=== PATIENT | female | born 2000 ===

== ENCOUNTER 2020-02-10 12:07 | Emergency (ER) | payer OTHER ==
[2020-02-10] MEDS ORDERED: Ibuprofen 400 MG Tab PO ONE (12:43)
--- NOTE | 2020-02-10 14:05 | CR ---
Right knee: AP, lateral and sunrise patellar views of the right knee were obtained. Comparison: No previous right knee study is available. Patellofemoral joint appears preserved. No joint effusion is seen. Medial and lateral joint compartments are maintained in height. No acute fracture or other bony abnormality is appreciated. Impression: 1. No abnormality is appreciated and 3 view right knee exam. Diagnostic code #1 This report was dictated in MDT
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
== END 2020-02-10 15:14 | disposition home or self-care (01) ==
LOC: MW.ED 12:07 → MERGE 12:07 → MW.ED 15:14
DX: M25.561 Pain in right knee (principal)
CPT/HCPCS: 73562; 99283; A9270; 99282

== ENCOUNTER 2021-12-31 21:40 | Emergency (ER) | payer OTHER ==
[2021-12-31] MEDS ORDERED: Albuterol 8 GM Inhaler INH STA (22:23)
[2021-12-31] MEDS ORDERED: predniSONE 20 MG Tab PO ONE (22:38)
== END 2021-12-31 23:28 | disposition home or self-care (01) ==
LOC: MW.ED 21:40
DX: J40 Bronchitis, not specified as acute or chronic (principal); Z20.822 Contact with and (suspected) exposure to COVID-19
CPT/HCPCS: 87635; 99284; A9270; U0002

== ENCOUNTER 2025-04-11 18:35 | Observation (INO) | payer OTHER ==
[2025-04-11] MEDS: Ondansetron 4 MG/2 ML SDV IVPUSH ONE (19:15)
[2025-04-11 19:21] LABS: BASOPHILS ABSOLUTE AUTO 0.05 K/uL (0.00-0.20); BASOPHILS PERCENT AUTO 0.3 % (0.0-1.0); EOSINOPHILS ABSOLUTE AUTO 0.04 K/uL (0.00-0.45); EOSINOPHILS PERCENT AUTO 0.3 % (0.0-6.0); IMMATURE GRAN ABSOLUTE AUTO 0.04 K/uL (0.00-0.05); IMMATURE GRAN PERCENT AUTO 0.3 % (0.0-0.4); LYMPHOCYTES ABSOLUTE AUTO 2.97 K/uL (1.00-4.80); LYMPHOCYTES PERCENT AUTO 18.6 % (24.0-44.0); MEAN PLATELET VOLUME 9.7 fL (9.4-12.3); MONOCYTES ABSOLUTE AUTO 0.79 K/uL (0.00-0.80); MONOCYTES PERCENT AUTO 5.0 % (0.0-8.0); NEUTROPHILS ABSOLUTE AUTO 12.06 K/uL (1.80-7.70); NEUTROPHILS PERCENT AUTO 75.5 % (41.0-71.0); NRBC ABSOLUTE 0.00 K/uL (0.00-0.02); NRBC PERCENT 0.0 /100WBC (0.0-0.2); PLATELET COUNT,PLT 316 K/uL (150-400); RED BLOOD CELL COUNT 5.42 M/uL (4.10-5.30); WHITE BLOOD CELL COUNT,WBC 15.95 K/uL (3.9-11.3)
[2025-04-11 19:42] LABS: INR 0.98 (0.86-1.11); PTT,PARTIAL THROMBOPLSTIN TIME 23.4 SEC (23.9-30.7)
[2025-04-11 19:53] LABS: A/G RATIO 1.0 (0.9-1.6); ALANINE AMINOTRANSFERASE,ALT 35 IU/L (14-63); ASPARTATE AMNIOTRANSFERASE,AST 27 IU/L (15-37); BILIRUBIN TOTAL 0.5 mg/dL (0.2-1.0); BLOOD UREA NITROGEN,BUN 10 mg/dL (7.0-18.0); CARBON DIOXIDE,CO2 29.6 mmol/L (21.0-32.0); CREATININE 1.0 mg/dL (0.6-1.0); EST CRCL DRUG DOSING (CG) 68.02 mL/min; PROTEIN TOTAL,TP 8.1 g/dL (6.4-8.2)
[2025-04-11 20:01] LABS: ESTIMATED GFR 80 mL/min (>60); HCG QUANTITATIVE < 1.0 mIU/mL
[2025-04-11 20:35] LABS: CHLORIDE,CL 101 mmol/L (98-107); GLUCOSE RANDOM 127 mg/dL (74-106); POTASSIUM,K 4.9 mmol/L (3.5-5.1); SODIUM,NA 140 mmol/L (136-145)
[2025-04-11 20:37] LABS: APPEARANCE,URINE CLEAR; GLUCOSE,URINE NEGATIVE (NEGATIVE); OCCULT BLOOD,URINE NEGATIVE (NEGATIVE)
[2025-04-11] MEDS: Iopamidol 755 MG/ML 500 ML Multipack Bottle IVPUSH STA (20:46)
[2025-04-11] MEDS: cefOXitin 2 GM in Water For Injection, Sterile 20 ML IVPUSH ONE (23:41)
[2025-04-11] MEDS: Lactated Ringers 1,000 ML IV STA (23:48)
[2025-04-12] MEDS: Ondansetron 4 MG/2 ML SDV IVPUSH PRN (04:28)
[2025-04-12] MEDS: cefOXitin 1 GM in Water For Injection, Sterile 10 ML IVPUSH SCH (05:44)
[2025-04-12] MEDS: Lactated Ringers 1,000 ML IV SCH (07:56)
[2025-04-12] MEDS ORDERED: Dexamethasone 4 MG/ML 5 ML MDV ONE (13:05)
[2025-04-12] MEDS ORDERED: Ondansetron 4 MG/2 ML SDV ONE (13:05)
[2025-04-12] MEDS ORDERED: Propofol 200 MG/20 ML SDV ONE (13:06)
[2025-04-12] MEDS ORDERED: propofoL 500 MG/50 ML 50 ML ONE ×4 (13:06→15:11)
[2025-04-12] MEDS ORDERED: Ropivacaine 0.5% 5 MG/ML 30 ML SDV ONE (13:06)
[2025-04-12] MEDS ORDERED: fentaNYL 100 MCG/2 ML SDV ONE ×2 (13:06→13:51)
[2025-04-12] MEDS ORDERED: Indocyanine Green 25 MG SDV ONE (13:19)
[2025-04-12] MEDS ORDERED: Ketamine HCL/NACL, ISO-OSM 50 MG/5 ML Syringe ONE (13:47)
[2025-04-12] MEDS ORDERED: Ketorolac 30 MG/ML SDV ONE (15:22)
[2025-04-12] MEDS ORDERED: Acetaminophen/HYDROcodone 325-5 MG Tab PO PRN ×2 (15:53→16:04)
[2025-04-12] MEDS ORDERED: Lactated Ringers 1,000 ML IV SCH (16:00)
== END 2025-04-12 18:00 | disposition home or self-care (01) ==
LOC: MW.ED 18:35 → MW.MS 23:23
PROVIDERS: ADMIT Surgery; ATTEND Surgery
DX: K80.62 Calculus of gallbladder and bile duct with acute cholecystitis without obstruction (principal); K82.A1 Gangrene of gallbladder in cholecystitis; E66.9 Obesity, unspecified; Z68.33 Body mass index [BMI] 33.0-33.9, adult
CPT/HCPCS: 36415; 47562; 64488; 74177; 76705; 80053; 81003; 82947; 83690; 84702; 85025; 85610; 85730; 96374; 96375; 96376; 99285; A4216; G0378; J0665; J0690; J0694; J1100; J1171; J1308; J1885; J2405; J2704; J2795; J3010; J7120; Q9967; 00790; J3490